=== PATIENT | male | born 1965 | race Caucasian/White ===

== ENCOUNTER → 2016-06-03 | Outpatient (CLI) | payer MEDICARE ==
[~2016-06-03] MED LIST: ASPIRIN 81MG TA81 MG PO; BACLOFEN 10MG T10 MG PO; BACLOFEN20 MG PO; CEFUROXIME AXE500 MG PO; CRANBERRY400 MG PO; DANTRIUM PO; DANTRIUM25 M1 PO; GABAPENTIN100 M1 PO; JANUVIA100 MG PO; JARDIANCE10 MG PO; LISINOPRIL 10MG10 MG PO; METFORMIN1000 MG PO; OMNICEF 300 MG300 MG PO; VITAMIN D32000 IU PO; ZOCOR40 MG PO
[2016-06-03 12:45] LABS: HEMOGLOBIN 13.9 g/dL (14.1-18.0); LYMPH # 1.6 K/mm3 (0.7-4.5); LYMPH % 26.8 % (10-50)
[2016-06-03 15:07] LABS: BUN 23 mg/dL (7-18)
[2016-06-03 15:19] LABS: GFR (ESTIMATED) 89 ML/MIN (>60)
[2016-06-06 03:36] LABS: Testosterone, Total, LC/MS 192.4 ng/dL (348.0-1197.0)
== END ==
LOC: LAB 12:19
PROVIDERS: Family Medicine
DX: R61 Generalized hyperhidrosis (principal)

== ENCOUNTER → 2016-06-04 | Outpatient (CLI) | payer MEDICARE ==
[2016-06-04 09:47] LABS: URINE BILIRUBIN - DIPSTICK NEGATIVE (NEG); URINE BLOOD 3+ (NEG)
== END ==
LOC: LAB 09:38
PROVIDERS: Family Medicine
DX: R61 Generalized hyperhidrosis (principal); R82.90 Unspecified abnormal findings in urine

== ENCOUNTER → 2016-08-29 | Outpatient (CLI) | payer MEDICARE ==
[~2016-08-29] MED LIST changes: +CIPROFLOXACIN500 MG PO
--- NOTE | 2016-08-29 22:48 | RADIOLOGY REPORT PS360 ---
[facility] [id number] Ordering Physician: AMA GORDILLO JR Patient Age: 50 years: Male HISTORY: NEUROMUSCULAR DYSFUNCTION OF URINARY BLADDER TECHNIQUE: Ultrasound right and left kidney FINDINGS Right. Difficult scan due to patient's condition and body habitus. Gallstone noted in gallbladder yield & shadowing overlying right kidney. Partially obscuring. It Color Doppler flow clearly normal at left kidney and less well delineated at right kidney. Left kidney 10.7 cm in length x5.8 x 5.2 cm Right kidney equals 9.9 x 4.3 x 6.2 cm. IMPRESSION: ...... Kidneys appear normal in size . No hydronephrosis nor mass. Cholelithiasis. Multiple shadowing stones in gallbladder..
== END ==
LOC: RAD 14:03
DX: N31.9 Neuromuscular dysfunction of bladder, unspecified (principal)